=== PATIENT | male | born 1965 | race Caucasian/White ===

== ENCOUNTER 2020-06-14 08:02 | Outpatient (RCR) | payer BC, SELFPAY ==
[2020-06-14] MEDS: COVID-19 VACC, MRNA(PFIZER)/PF 30 MCG/0.3 ML SYRINGE IM (18:53)
[2020-07-05] MEDS: COVID-19 VACC, MRNA(PFIZER)/PF 30 MCG/0.3 ML SYRINGE IM (18:29)
== END 2020-06-14 23:59 ==
LOC: IMMUN 08:02
PROVIDERS: PCP Family Medicine; Referring Provider Family Medicine; Visit Provider Family Medicine
DX: Z23 Encounter for immunization (principal)
CPT/HCPCS: 0001A; 0002A; 91300